=== PATIENT | female | born 1965 | race Caucasian/White ===

== ENCOUNTER → 2017-04-16 | Outpatient (CLI) | payer OTHER ==
[2016-01-15 22:55] VITALS: BP 122/74
[~2017-04-16] MED LIST: ALPR0.254 PO; ALPR0.5T PO; DEXT30CA6 PO; LAMO150T PO; SERT100T PO
--- NOTE | 2017-04-19 14:35 | KCIC ---
DATE: 04/16/2017 EXAM: MAMMO KARIME SCREENING BILATERAL HISTORY: Routine screening COMPARISON: 04/09/2006 This study was interpreted with the benefit of Computerized Aided Detection (CAD). The breast parenchyma shows scattered fibroglandular densities. Breast parenchyma level B. FINDINGS: 2-D and 3-D tomosynthesis imaging was performed in CC and MLO projections. No new or enlarging breast densities are seen. No suspicious microcalcifications are evident. IMPRESSION: Stable mammograms without evidence of malignancy. BI-RADS CATEGORY: 1 NEGATIVE RECOMMENDED FOLLOW-UP: 12M 12 MONTH FOLLOW-UP PQRS compliance statement: Patient information was entered into a reminder system with a target due date for the next mammogram. Mammography is a sensitive method for finding small breast cancers, but it does not detect them all and is not a substitute for careful clinical examination. A negative mammogram does not negate a clinically suspicious finding and should not result in delay in biopsying a clinically suspicious abnormality. "Our facility is accredited by the [employer] Mammography [employer]."
== END | disposition home or self-care (01) ==
LOC: KCIC MAMMO 15:07
PROVIDERS: ATTEND Family Medicine
DX: Z12.31 Encounter for screening mammogram for malignant neoplasm of breast (principal)
CPT/HCPCS: 77063; G0202; 77067

== ENCOUNTER → 2017-10-21 | Outpatient (CLI) | payer OTHER ==
[2017-10-21] MEDS: IOHEXOL 300 MG/ML 100ML VIAL. IV (14:45)
[2017-10-21] MEDS: IOHEXOL 240 MG/ML 50ML VIAL. PO (14:45)
== END | disposition home or self-care (01) ==
LOC: CT 13:48
DX: K76.89 Other specified diseases of liver (principal); Z90.710 Acquired absence of both cervix and uterus
CPT/HCPCS: 74177; Q9966; Q9967

== ENCOUNTER → 2018-05-11 | Outpatient (CLI) | payer OTHER ==
[2016-01-15 22:55] VITALS: BP 122/74
[~2018-05-11] MED LIST changes: -LAMO150T PO; +LAMO150T2 PO
--- NOTE | 2018-05-11 17:21 | KCIC ---
Bilateral digital screening mammograms with 3-D tomosynthesis: Reason for examination: Routine screening. Comparison is made to previous studies dated 04/16/2017, 02/06/2009 and 05/09/2007. Bilateral mammograms in CC and oblique projections were obtained with 2-D imaging and 3-D tomosynthesis imaging on a Siemens Inspiration unit and reviewed on the workstation. Interpretation was made with the benefit of CAD. The skin and nipples show no abnormalities. No abnormal axillary lymph nodes are seen. The breast parenchyma shows scattered fatty and fibroglandular density. (Breast density: Category B.) There continues to be a small nodule probably representing an intramammary lymph node in the posterior lateral left breast which is stable. There are no new dominant masses, suspicious calcifications or architectural distortion. Impression: No evidence of malignancy. Recommend routine screening. BI-RAD Category 2: Benign. "Our facility is accredited by the [employer] Mammography [employer]." This patient's information has been entered into a reminder system for the patient to be notified with the results of her examination and a target date for the next mammogram. Electronically signed by: Adriana Bal MD (05/11/2018 5:17 PM) [id number]
== END | disposition home or self-care (01) ==
LOC: KCIC MAMMO 12:25
PROVIDERS: ATTEND Family Medicine
DX: Z12.31 Encounter for screening mammogram for malignant neoplasm of breast (principal)
CPT/HCPCS: 77063; 77067

== ENCOUNTER 2018-05-25 18:05 | Emergency (ER) | payer OTHER ==
[~2018-05-25] VITALS: Ht 160 cm; Wt 58.1 kg
[2018-05-25 18:19] VITALS: BP 160/84
[2018-05-25] MEDS ORDERED: METH4TAB2 PO (19:25)
--- NOTE | 2018-05-25 19:26 | PHYS DOC ---
Past Medical History Past Medical History: Anxiety, Depression, Other Additional Past Medical Histor: VERTIGO X 1 YEAR, ADD Past Surgical History: Hysterectomy Additional Past Surgical Histo: "TUMMY TUCK" ABD HERNIA Alcohol Use: None Drug Use: None Adult General Chief Complaint Chief Complaint: ELBOW PROBLEM HPI HPI Patient is a 52 year old female who presents to the emergency room with complaints of right elbow pain that has progressively gotten worse over the last month. Patient states that her upper feels warm to touch and that the pain increases when she moves her arm. She denies any known injury, she reports repetitive movement with lots of raking as of recent. Patient denies any fever, numbness, tingling, or weakness of the arm. Review of Systems Review of Systems Constitutional: Denies fever or chills [] Musculoskeletal: See history of present illness Integument: Denies rash or skin lesions [] Neurologic: Denies headache, focal weakness or sensory changes [] Complete systems were reviewed and found to be within normal limits, except as documented in this note. Allergies Allergies Allergies Coded Allergies Type Severity Reaction Last Updated Verified No Known Drug Allergies 01/08/15 No Physical Exam Physical Exam Constitutional: Well developed, well nourished, no acute distress, non-toxic appearance. [] HENT: Normocephalic, atraumatic, bilateral external ears normal, nose normal. [] Eyes: conjunctiva normal, no discharge. [] Skin: Warm, dry, no erythema, no rash. [] Extremities: No bony tenderness or deformity, no cyanosis, no clubbing, right upper extremity ROM intact, 1+ edema to right elbow with mild erythema and warmth. [] Neurologic: Alert and oriented X 3, normal motor function, normal sensory function, no focal deficits noted. [] Psychologic: Affect normal, judgement normal, mood normal. [] Current Patient Data Vital Signs Vital Signs Date Time Temp Pulse Resp B/P (MAP) Pulse Ox O2 Delivery O2 Flow Rate FiO2 05/25/18 18:19 98.4 108 20 160/84 (109) 100 Room Air 98.4 EKG EKG [] Radiology/Procedures Radiology/Procedures [] Course & Med Decision Making Course & Med Decision Making Pertinent Labs and Imaging studies reviewed. (See chart for details) [] Dragon Disclaimer Dragon Disclaimer This electronic medical record was generated, in whole or in part, using a voice recognition dictation system. Departure Departure Impression: Primary Impression: Right elbow tendinitis Disposition: 01 HOME, SELF-CARE Condition: STABLE Referrals: PETRA MEHTA DO (PCP) JUAN TAYLOR MD Patient Instructions: Tennis Elbow, [id number] Additional Instructions: Fill prescription(s) and use as directed. Recommend application of ice, elevation, and rest of affected extremity. Follow-up with Dr. Taylor or your primary care provider if symptoms persist. Return to the ER if your symptoms worsen. Scripts Methylprednisolone (MEDROL) 4 Mg Tab.ds.pk 1 PKG PO UD for 6 Days, #1 PKG Prov: MUKUND ROUSE ASBESTOS REMOVAL WORKER 05/25/18 MUKUND ROUSE ASBESTOS REMOVAL WORKER May 25, 2018 19:26
== END 2018-05-25 19:47 | disposition home or self-care (01) ==
LOC: ER 18:05
DX: M77.8 Other enthesopathies, not elsewhere classified (principal)
CPT/HCPCS: 99283

== ENCOUNTER 2018-08-06 19:36 | Emergency (ER) | payer OTHER ==
[~2018-08-06] VITALS: Ht 160 cm; Wt 58.1 kg
[~2018-08-06 19:36] MED LIST changes: +METH4TAB2 PO
[2018-08-06 19:40] VITALS: BP 162/88
[2018-08-06] MEDS ORDERED: AMOX1TAB61 PO (19:48)
--- NOTE | 2018-08-06 19:48 | PHYS DOC ---
Past Medical History Past Medical History: Anxiety, Depression, Other Additional Past Medical Histor: VERTIGO X 1 YEAR, ADD Past Surgical History: Hysterectomy Additional Past Surgical Histo: "TUMMY TUCK" ABD HERNIA Alcohol Use: None Drug Use: None Adult General Chief Complaint Chief Complaint: ANIMAL BITE HPI HPI 53 y/o female presents with report of dog bite to posterior aspect of left knee which occurred at 1130A today. Reports was at her residence and a neighbors dog ran out and was barking. Reports animal got behind her and then she felt it bite her through her pants. 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 Reports it is a domesticated animal. Reports last tetanus booster was greater than 5 years ago. Denies other injury. Review of Systems Review of Systems Constitutional: Denies fever or chills [] Eyes: Denies change in visual acuity, redness, or eye pain [] HENT: Denies nasal congestion or sore throat [] Respiratory: Denies cough or shortness of breath [] Cardiovascular: No additional information not addressed in HPI [] GI: Denies abdominal pain, nausea, vomiting, bloody stools or diarrhea [] : Denies dysuria or hematuria [] Musculoskeletal: Denies back pain or joint pain [] Integument: Denies rash or skin lesions [] Neurologic: Denies headache, focal weakness or sensory changes [] Endocrine: Denies polyuria or polydipsia [] All other systems were reviewed and found to be within normal limits, except as documented in this note. Current Medications Current Medications Current Medications Medications (Trade) Dose Ordered Sig/Akash Start Time Stop Time Status Last Admin Dose Admin Amoxicillin/ Clavulanate Potassium (Augmentin 875/ 125mg) 1 tab 1X ONCE 08/06/18 20:30 08/06/18 20:30 DC 08/06/18 20:06 1 TAB Diphtheria/ Tetanus/Acell Pertussis (Boostrix) 0.5 ml ONCE ONCE 08/06/18 20:30 08/06/18 20:30 DC 08/06/18 20:11 0.5 ML Neomycin/ Polymyxin/ Bacitracin (Triple Antibiotic Ointment) 1 pkt 1X ONCE 08/06/18 20:30 08/06/18 20:30 DC 08/06/18 20:06 1 PKT Allergies Allergies Allergies Coded Allergies Type Severity Reaction Last Updated Verified No Known Drug Allergies 01/08/15 No Physical Exam Physical Exam Constitutional: Well developed, well nourished, no acute distress, non-toxic appearance. [] HENT: Normocephalic, atraumatic, oropharynx moist Eyes: Conjunctiva normal, no discharge. [] Neck: Normal range of motion, no tenderness, supple Lungs & Thorax: No respiratory distress Skin: Warm, dry, small abrasion/dog bite to posterior aspect of left knee as below Extremities: ROM intact, no deformity; small 2 cm x 2cm abrasion/dog bite to posterior aspect of left knee Neurologic: Alert and oriented X 3, no focal deficits noted. [] Psychologic: Affect normal, judgement normal, mood normal. [] Current Patient Data Vital Signs Vital Signs Date Time Temp Pulse Resp B/P (MAP) Pulse Ox O2 Delivery O2 Flow Rate FiO2 08/06/18 19:40 97.7 101 18 162/88 (112) 96 Room Air 97.7 EKG EKG [] Radiology/Procedures Radiology/Procedures [] Course & Med Decision Making Course & Med Decision Making Patient presents with report of a domesticated dog bite to posterior aspect of left knee which occurred at 1130A today. Wound very superficial however pinpoint area of bleeding noted otherwise more consistent for abrasion. Tetanus updated. Wound cleaned and dressed. Empiric antibiotics given due to skin breakage. Proper authorities contacted by staff nuclear weapons officer. Patient stable for discharge home with outpatient follow-up with PCP. Discussed findings and plan with patient, who acknowledges understanding and agreement. Dragon Disclaimer Dragon Disclaimer This electronic medical record was generated, in whole or in part, using a voice recognition dictation system. Departure Departure Impression: Primary Impression: Dog bite Disposition: 01 HOME, SELF-CARE Condition: STABLE Referrals: PETRA MEHTA DO (PCP) Patient Instructions: Animal Bite, [id number] Scripts Amoxicillin/Potassium Clav (AUGMENTIN 875-125 TABLET) 1 Each Tablet 1 TAB PO BID, #14 TAB Prov: ARACELI FU DO 08/06/18 Problem Qualifiers Primary Impression: Dog bite Encounter type: initial encounter Qualified Codes: W54.0XXA - Bitten by dog , initial encounter ARACELI FU DO Aug 06, 2018 19:48
[2018-08-06] MEDS ORDERED: AMOXICILLIN/K CLAV 875/125MG TABLET. PO ONE (20:30)
[2018-08-06] MEDS ORDERED: DIPHTH,PERTUSS(ACELL),TET TOX 0.5 ML DISP.SYRIN. VAX IM ONE (20:30)
[2018-08-06] MEDS ORDERED: NEOMY/BACITR/POLYMYXIN OINT PACKET. TP ONE (20:30)
== END 2018-08-06 20:15 | disposition home or self-care (01) ==
LOC: ER 19:36
DX: S81.052A Open bite, left knee, initial encounter (principal); W54.0XXA Bitten by dog, initial encounter; Y93.89 Activity, other specified; Y92.89 Other specified places as the place of occurrence of the external cause; Y99.8 Other external cause status
CPT/HCPCS: 90471; 90715; 99283

== ENCOUNTER → 2019-05-16 | Outpatient (CLI) | payer OTHER ==
[~2019-05-16] MED LIST changes: +AMOX1TAB61 PO; -LAMO150T2 PO; +LAMO150T4 PO
--- NOTE | 2019-05-16 17:01 | KCIC ---
Bilateral digital screening mammograms with 3-D tomosynthesis: Reason for examination: Routine screening. Comparison is made to previous studies dated 05/11/2018 and 04/16/2017. Bilateral mammograms in CC and oblique projections were obtained with 2-D imaging and 3-D tomosynthesis imaging on a Siemens Inspiration unit and reviewed on the workstation. Interpretation was made with the benefit of CAD. The skin and nipples show no abnormalities. No abnormal axillary lymph nodes are seen. The breast parenchyma shows scattered fatty and fibroglandular density. (Breast density: Category B.) There are no dominant masses, suspicious calcifications or architectural distortion. Impression: No evidence of malignancy. Recommend routine screening. BI-RAD Category 1: Negative. "Our facility is accredited by the [employer] Mammography Program." This patient's information has been entered into a reminder system for the patient to be notified with the results of her examination and a target date for the next mammogram. Electronically signed by: Adriana Bal MD (05/16/2019 4:58 PM) [id number]
== END | disposition home or self-care (01) ==
LOC: KCIC MAMMO 15:23
PROVIDERS: ATTEND Family Medicine
DX: Z12.31 Encounter for screening mammogram for malignant neoplasm of breast (principal)
CPT/HCPCS: 77063; 77067

== ENCOUNTER → 2020-06-14 | Outpatient (CLI) | payer OTHER ==
--- NOTE | 2020-06-14 17:32 | KCIC ---
Bilateral digital screening mammograms and tomosynthesis Reason for examination: Routine screening. Comparison is made to previous study dated May 16, 2019 and priors Routine CC and MLO digital views obtained. Interpretation was made with the benefit of CAD. The skin and nipples show no abnormalities. No abnormal lymph nodes are seen. The breast parenchyma i s scattered fibroglandular elements. (Breast density: Category B.) There are no suspicious masses, lemus spicious calcifications or architectural distortions. Nodular asymmetry of the right inner lower bisi st mid depth stable to prior exams consistent with an island of fibroglandular, benign. Impression: Negative mammogram. Recommend routine screening. BI-RADS Category 2: Benign. "Our facility is accredited by the [employer] Mammography [employer]." This patient's information has been entered into a reminder system for the patient to be notified wit h the results of her examination and a target date for the next mammogram. Electronically signed by: De Evans MD (06/14/2020 5:28 PM) [email or web address]
== END ==
LOC: KCIC MAMMO 14:30
PROVIDERS: ATTEND Family Medicine
DX: Z12.31 Encounter for screening mammogram for malignant neoplasm of breast (principal)
CPT/HCPCS: 77063; 77067

== ENCOUNTER → 2021-07-03 | Outpatient (CLI) | payer OTHER ==
--- NOTE | 2021-07-03 17:23 | KCIC ---
Bilateral digital screening mammograms with 3-D tomosynthesis: Reason for examination: Routine screening. Comparison is made to previous studies dated back to 04/16/2017. Bilateral mammograms in CC and oblique projections were obtained with 2-D imaging and 3-D tomosynthes is imaging on a Siemens Inspiration unit and reviewed on the workstation. Interpretation was made wit h the benefit of CAD. The skin and nipples show no abnormalities. No abnormal axillary lymph nodes are seen. The breast par enchyma shows scattered fatty and fibroglandular density. (Breast density: Category B.) There continu es to be a small focus of nodular parenchymal asymmetry at the 5:30 B position of the right breast wh ich is stable. There are no new dominant masses, suspicious calcifications or architectural distortio n. Impression: No evidence of malignancy. Recommend routine screening. BI-RAD Category 2: Benign. "Our facility is accredited by the [employer] Mammography [employer]." This patient's information has been entered into a reminder system for the patient to be notified wit h the results of her examination and a target date for the next mammogram. Electronically signed by: Adriana Bal MD (07/03/2021 5:21 PM) [email or web address]
== END ==
LOC: KCIC MAMMO 16:01
PROVIDERS: ATTEND Family Medicine
DX: Z12.31 Encounter for screening mammogram for malignant neoplasm of breast (principal)
CPT/HCPCS: 77063; 77067